=== PATIENT | female | born 1945 | race Caucasian/White ===

== ENCOUNTER 2019-06-30 12:31 | Emergency (ER) | payer MEDICARE, MEDICAID ==
[~2019-06-30] VITALS: Ht 177.8 cm; Wt 91.0 kg
[~2019-06-30 12:31] MED LIST: DULO20CA50 PO; HYDR1TAB PO; OMEP-84 PO; ZOF4T PO
[2019-06-30] MEDS ORDERED: ondansetron/PF 4mg/2ml inj IV ONE (12:55)
[2019-06-30] MEDS ORDERED: normal saline 1000ML IV soln IVB ONE (12:55)
[2019-06-30] MEDS ORDERED: morphine 4 MG/ML inj SYRINge IV PRN (12:55)
[2019-06-30] MEDS ORDERED: LIDOcaine Viscous 15ml cup PO ONE (13:05)
[2019-06-30] MEDS ORDERED: mag hydrox/Alum hydrox/simeth 30ml oral suspension PO ONE (13:05)
--- NOTE | 2019-06-30 13:10 | NUR ---
ASSUMED CARE OF PT
[2019-06-30 13:15] LABS: EOSINOPHILS % (AUTO) 0.2 % (0-6); LYMPHOCYTES # (AUTO) 0.8 X10'3 (1.1-4.8); MEAN CORPUSCULAR HGB CONC 33.6 g/dL (33.0-36.5); MEAN CORPUSCULAR VOLUME 95.2 FL (78-98); MEAN PLATELET VOLUME 6.8 FL (7.4-10.4); MONOCYTES # (AUTO) 0.3 X10'3 (0-0.9)
[2019-06-30 13:17] LABS: BASOPHILS % (AUTO) 0.3 % (0-1); HEMATOCRIT 44.6 % (35.0-45.0); LYMPHOCYTES % (AUTO) 8.8 % (21-51); MONOCYTES % (AUTO) 3.3 % (2-12); NEUTROPHILS # (AUTO) 7.9 X10'3 (1.8-7.7); NEUTROPHILS % (AUTO) 87.4 % (42-75); PLATELET COUNT 275 X10'3 (140-440); RED BLOOD COUNT 4.69 X10'6 (4.20-5.60); RED CELL DISTRIBUTION WIDTH 13.5 % (11.5-14.5)
[2019-06-30] MEDS ORDERED: HYDR-4353 PO (13:25)
[2019-06-30] MEDS ORDERED: DULO60CA45 PO (13:25)
[2019-06-30] MEDS ORDERED: MORP30TA PO (13:25)
[2019-06-30 13:30] LABS: ALANINE AMINOTRANSFERASE 33 U/L (12-78); ALBUMIN 3.8 G/DL (3.4-5.0); ALKALINE PHOSPHATASE 90 IU/L (46-116); ANION GAP 8 (8-16); ASPARTATE AMINO TRANSFERASE 21 U/L (10-37); BILIRUBIN,TOTAL 0.4 MG/DL (0.1-1.0); BLOOD UREA NITROGEN 9 MG/DL (7-18); BUN/CREATININE RATIO 10.6 (6.6-38.0); CHLORIDE 102 MMOL/L (99-107); CREATININE 0.85 MG/DL (0.40-0.90); GLUCOSE 149 MG/DL (70-104); POTASSIUM 3.9 MMOL/L (3.5-5.1); SODIUM 138 MMOL/L (135-145); TOTAL CARBON DIOXIDE 28.4 MMOL/L (24-32); TOTAL PROTEIN 7.6 G/DL (6.4-8.2); eGFR 66 ML/MIN
[2019-06-30 13:36] LABS: LIPASE 58 U/L (73-393); MAGNESIUM 1.8 MG/DL (1.5-2.4)
--- NOTE | 2019-06-30 14:10 | NUR ---
pt is resting quietly on gurney, resp even and unlabored, 84% on room air with good pleth, placed pt on nasal cannula 3liters 02, pulse ox increased to 94%
[2019-06-30 14:48] LABS: D-DIMER 0.65 MG/L FEU (0-0.50)
--- NOTE | 2019-06-30 14:52 | NUR ---
PT AMB WITH STEADY GAIT TO RESTROOM
[2019-06-30 15:47] LABS: CLARITY,URINE CLOUDY (Clear); COLOR,URINE YELLOW (Yellow); GLUCOSE, URINE NEGATIVE (Neg); KETONES,URINE NEGATIVE (Neg); LEUKOCYTE ESTERASE ,URINE SMALL (Neg); NITRITES, URINE POSITIVE (Neg); OCCULT BLOOD,URINE NEGATIVE (Neg); PROTEIN,URINE NEGATIVE (Neg); UROBILINOGEN,URINE 0.2 E.U/dL (0.2-1.0)
[2019-06-30 15:51] LABS: UA COLLECTION TYPE CLN CATCH MIDSTREAM
[2019-06-30 15:55] LABS: BACTERIA,URINE 4+ /HPF (Neg); RBC,URINE 0-2 /HPF (0-2); SQUAMOUS EPITHELIAL CELL,UR FEW /LPF (FEW)
[2019-06-30] MEDS ORDERED: ESOM40CA PO (16:15)
[2019-06-30] MEDS ORDERED: CEPH500C5 PO (16:15)
[2019-06-30] MEDS ORDERED: ONDA4TAB12 PO (16:15)
[2019-06-30 16:32] VITALS: BP 144/87
== END 2019-06-30 16:33 | disposition home or self-care (01) ==
LOC: ER 12:32
DX: N39.0 Urinary tract infection, site not specified (principal); Z79.2 Long term (current) use of antibiotics; Z79.899 Other long term (current) drug therapy
CPT/HCPCS: 36415; 71045; 74176; 80053; 81001; 83690; 83735; 83880; 84145; 84484; 85025; 85379; 87077; 87088; 87186; 93005; 96374; 96375; 99284; J2270; J2405; J7030